=== PATIENT | female | born 1995 | race Two or more races ===

== ENCOUNTER 2024-01-30 17:19 | Emergency (ER) | payer MEDICAID, SELFPAY ==
[2024-01-30 17:22] VITALS: PULSE 98; RESP 18; O2SAT 99
[2024-01-30 17:38] VITALS: BP 134/89; PULSE 96; RESP 18; TEMP 36.6; O2SAT 100; BMI 28.3
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
[2024-01-30] MEDS: HYDROcodone/APAP 10/325 TAB PO (20:36)
[2024-01-30 20:55] VITALS: RESP 20
== END 2024-01-30 20:56 | disposition home or self-care (01) ==
PROVIDERS: Emergency Provider Emergency Medicine
DX: S92.212A Displaced fracture of cuboid bone of left foot, initial encounter for closed fracture (principal); S20.219A Contusion of unspecified front wall of thorax, initial encounter; V89.2XXA Person injured in unspecified motor-vehicle accident, traffic, initial encounter
CPT/HCPCS: 29515; 71046; 73630; 99283; A9270